=== PATIENT | female | born 1985 | race Hispanic/Latino ===

== ENCOUNTER 2024-08-06 05:28 | Inpatient (IN) | payer BC ==
[2024-08-06 05:46] VITALS: BMI 29.6
[2024-08-06] MEDS ORDERED: Misoprostol 200 MCG TAB PR PRN ×2 (05:49→08:49)
[2024-08-06] MEDS ORDERED: Ondansetron PF 4 MG/2 ML Vial IVP PRN ×3 (05:49→08:57)
[2024-08-06] MEDS ORDERED: Bicitra 30 ML UDCUP PO PRN (05:49)
[2024-08-06] MEDS ORDERED: Diphenoxylate HCl/Atropine Tablet PO PRN (05:49)
[2024-08-06] MEDS ORDERED: hydrALAZINE 20 MG/ML VIAL SLOW IVP PRN ×2 (05:49→08:49)
[2024-08-06] MEDS ORDERED: Tranexamic Acid 1,000 MG/10 ML VIAL IVP PRN (05:49)
[2024-08-06] MEDS ORDERED: Promethazine HCl 25 MG/ML VIAL IM PRN (05:49)
[2024-08-06] MEDS ORDERED: Methylergonovine 0.2 MG/ML VIAL IM PRN ×2 (05:49→08:49)
[2024-08-06] MEDS ORDERED: Acetaminophen 500 MG TAB PO PRN (05:49)
[2024-08-06] MEDS ORDERED: Carboprost 250 MCG/ML AMP IM PRN (05:49)
[2024-08-06] MEDS ORDERED: Lactated Ringer's 1,000 ML IV SCH (06:00)
[2024-08-06] MEDS ORDERED: Oxytocin 30 units/NS 500 ML 500 ML IV SCH ×2 (06:00→09:00)
[2024-08-06 07:02] LABS: Hematocrit 34.4 % (34.9-44.5); Mean Corpuscular Volume 90.8 fL (81.6-98.3); Mean Platelet Volume 11.4 fL (7.4-10.4); Platelet Count 194 10x3/uL (150-450); RBC Distribution Width 13.8 % (11.5-14.5); Red Blood Cell (RBC) Count 3.79 10x6/uL (3.90-5.03); White Blood Cell (WBC) Count 9.71 10x3/uL (3.5-10.5)
[2024-08-06] MEDS ORDERED: Morphine PF 10 MG/10 ML VIAL ONE (07:21)
[2024-08-06] MEDS ORDERED: Oxytocin 10 UNITS/ML VIAL ONE ×2 (07:21→08:28)
[2024-08-06] MEDS ORDERED: fentaNYL 50 mcg/mL 1 mL Vial ONE (07:21)
[2024-08-06] MEDS ORDERED: Ondansetron PF 4 MG/2 ML Vial ONE (07:21)
[2024-08-06] MEDS ORDERED: Phenylephrine 40 MG/NS 250 ML 250 ML ONE (07:21)
[2024-08-06] MEDS: CEFAZOLIN 2 GM in Sodium Chloride 0.9% 100 ML IVPB SCH (07:27)
[2024-08-06] MEDS: Famotidine/PF 20 mg/2ml Vial SLOW IVP PRN (07:27)
[2024-08-06] MEDS ORDERED: ePHEDrine Sulfate 50 MG/10 ML VIAL ONE (07:37)
[2024-08-06 07:38] LABS: Syphilis Antibody Nonreactive (Nonreactive); Syphilis Antibody Index 0.04 S/CO (<1.00 Non-Reactive)
[2024-08-06 07:39] LABS: HBsAg Index 0.22 S/CO (0-0.99); Hep B Surf Ag - L&D Non-Reactive S/CO (NonReactive)
[2024-08-06] MEDS ORDERED: Carboprost 250 MCG/ML AMP ONE (07:58)
[2024-08-06] MEDS ORDERED: Ketorolac Tromethamine 30 MG (1 mL) VIAL ONE (08:26)
[2024-08-06] MEDS ORDERED: Simethicone Chewable 80 MG TAB PO PRN (08:49)
[2024-08-06] MEDS ORDERED: Lanolin Ointment 7 GM TUBE TOP PRN (08:49)
[2024-08-06] MEDS ORDERED: diphenhydrAMINE 25 MG CAP PO PRN (08:49)
[2024-08-06] MEDS ORDERED: Dextrose 5% in Water 1,000 ML IV PRN ×2 (08:49→09:37)
[2024-08-06] MEDS ORDERED: Bisacodyl 10 MG SUPP PR PRN (08:49)
[2024-08-06] MEDS ORDERED: Glucagon 1 MG/ML KIT IM PRN ×2 (08:49→09:37)
[2024-08-06] MEDS ORDERED: Dextrose 50% Abboject 50 ML SYRINGE SLOW IVP PRN ×2 (08:49→09:37)
[2024-08-06] MEDS ORDERED: Naloxone HCl 0.4 mg/ml Vial IVP PRN ×2 (08:57)
[2024-08-06] MEDS ORDERED: diphenhydrAMINE 50 MG/ML VIAL IVP PRN (08:57)
[2024-08-06] MEDS ORDERED: Meperidine HCl/PF 25 MG (1 mL) VIAL SLOW IVP PRN (08:57)
[2024-08-06] MEDS ORDERED: Naloxone HCl 0.4 mg/ml Vial IV PRN (08:57)
[2024-08-06] MEDS ORDERED: fentaNYL 50 mcg/mL 1 mL Vial SLOW IVP PRN (08:57)
[2024-08-06] MEDS ORDERED: HYDROmorphone 0.5 MG/0.5 ML SYRINGE SLOW IVP PRN (08:57)
[2024-08-06] MEDS ORDERED: Moisturizing Cream (Eucerin) 113 GM JAR TOP PRN (08:57)
[2024-08-06] MEDS ORDERED: Lantus 1000 UNITS/10 ML VIAL SC SCH (09:00)
[2024-08-06] MEDS ORDERED: Communication Order-Pharmacy FS SCH (09:00)
[2024-08-06] MEDS ORDERED: Ketorolac Tromethamine 30 MG (1 mL) VIAL IVP SCH (09:00)
[2024-08-06] MEDS ORDERED: Insulin Lispro 100 UNIT/ML 10 ML VIAL SC PRN (09:37)
[2024-08-06] MEDS: Ondansetron PF 4 MG/2 ML Vial IVP PRN (14:08)
[2024-08-06] MEDS: Ibuprofen 800 MG TAB PO SCH (15:54)
[2024-08-06] MEDS: Prenatal Vitamin 1 TAB PO SCH (15:54)
[2024-08-06] MEDS: Docusate 100 MG CAP PO SCH (15:55)
[2024-08-06] MEDS: Ferrous Sulfate 325 MG TAB PO SCH (15:55)
[2024-08-06] MEDS: Famotidine/PF 20 mg/2ml Vial ONE (15:55)
[2024-08-06] MEDS: Ketorolac Tromethamine 30 MG (1 mL) VIAL IVP PRN (16:54)
[2024-08-06] MEDS: Diphenoxylate HCl/Atropine Tablet PO PRN (16:57)
[2024-08-06] MEDS: Promethazine HCl 25 MG/ML VIAL IM PRN (18:57)
[2024-08-06] MEDS ORDERED: HYDROcodone/Acetaminophen 5/325 mg Tablet PO PRN (21:00)
[2024-08-07 05:27] LABS: Hematocrit 18.8 % (34.9-44.5); Hemoglobin 6.3 g/dL (12.0-15.5); Mean Corpuscular HGB CONC 33.5 g/dL (32.0-36.0); Mean Corpuscular Hemoglobin 29.9 pg (27.0-33.0); Mean Corpuscular Volume 89.1 fL (81.6-98.3); Mean Platelet Volume 11.4 fL (7.4-10.4); Platelet Count 175 10x3/uL (150-450); RBC Distribution Width 13.8 % (11.5-14.5); Red Blood Cell (RBC) Count 2.11 10x6/uL (3.90-5.03); White Blood Cell (WBC) Count 10.39 10x3/uL (3.5-10.5)
[2024-08-07] MEDS: HYDROcodone/Acetaminophen 5/325 mg Tablet PO PRN (08:12)
[2024-08-07] MEDS: Calcium Carbonate 500 MG ChewTAB PO SCH ×2 (18:04→21:47)
[2024-08-07 18:53] LABS: Hematocrit 25.6 % (34.9-44.5); Hemoglobin 8.4 g/dL (12.0-15.5); Mean Corpuscular HGB CONC 32.8 g/dL (32.0-36.0); Mean Corpuscular Hemoglobin 29.3 pg (27.0-33.0); Mean Corpuscular Volume 89.2 fL (81.6-98.3); Platelet Count 197 10x3/uL (150-450); RBC Distribution Width 14.4 % (11.5-14.5); Red Blood Cell (RBC) Count 2.87 10x6/uL (3.90-5.03); White Blood Cell (WBC) Count 14.22 10x3/uL (3.5-10.5)
[2024-08-08 08:27] VITALS: BP 108/52; TEMP 98.7
[2024-08-08] MEDS ORDERED: Acetaminophen 500 MG TAB PO SCH (09:30)
== END 2024-08-08 19:00 | disposition home or self-care (01) | DRG 786 ==
LOC: CSHLD 05:28 → CSHPED 11:20
PROVIDERS: ADMIT Family Medicine; ATTEND Family Medicine
PROC: 10D00Z1 Extraction of Products of Conception, Low, Open Approach (ICD-10-PCS; principal; 2024-08-06)
PROC: 30233N1 Transfusion of Nonautologous Red Blood Cells into Peripheral Vein, Percutaneous Approach (ICD-10-PCS; 2024-08-06)
DX: O34.211 Maternal care for low transverse scar from previous cesarean delivery (principal); O24.12 Pre-existing type 2 diabetes mellitus, in childbirth; D62 Acute posthemorrhagic anemia; O90.81 Anemia of the puerperium; Z3A.36 36 weeks gestation of pregnancy; Z37.0 Single live birth; Z91.048 Other nonmedicinal substance allergy status
CPT/HCPCS: 36415; 36416; 36430; 51702; 85027; 85384; 86780; 86850; 86900; 86901; 87340; J1885; J2274; J2405; J2550; J2590; J3010; J3490; P9016